=== PATIENT | female | born 1970 | race Caucasian/White ===

== ENCOUNTER 2017-05-12 15:16 | Outpatient (CLI) | payer BC | END 2017-05-12 15:17 | disposition home or self-care (01) | LOC: CTENTCT 15:16 | PROVIDERS: ATTEND Specialist | DX: J32.8 Other chronic sinusitis (principal) | CPT/HCPCS: 70486 ==

== ENCOUNTER 2019-08-13 10:13 | Emergency (ER) | payer BC, SELFPAY ==
--- NOTE | 2019-08-13 11:12 | RAD ---
Right thumb 3 views HISTORY: Right thumb pain. FINDINGS: Immediately volar to the base of the distal phalanx is a triangular 0.2 cm ossific fragment with sharp posterior margins. Donor site not well demonstrated. Joint spaces are preserved. Mild osteoarthritic changes at the first carpometacarpal joint. IMPRESSION: Minimal displacement of a probable tiny ossific avulsion of the flexor tendon at the vola r base plate of the distal phalanx. Correlate with recent trauma and clinical findings.
== END 2019-08-13 11:14 | disposition home or self-care (01) ==
LOC: ERS 10:13
DX: M65.4 Radial styloid tenosynovitis [de Quervain] (principal); F41.9 Anxiety disorder, unspecified

== ENCOUNTER 2020-03-04 21:37 | Emergency (ER) | payer OTHER, SELFPAY ==
--- NOTE | 2020-03-04 22:08 | RAD ---
Exam: Chest one view HISTORY:Chest pain Comparison: 11/25/2019 FINDINGS: Cardiac silhouette: Normal Aorta: Unremarkable Pulmonary vessels: Normal Costophrenic angles: Clear LUNGS: No masses or consolidation. Pneumothorax: None Osseous abnormalities: None IMPRESSION: No acute cardiopulmonary process.
[2020-03-04 22:25] LABS: #Basophils 0.1 thou/uL (0.0-0.2); #Lymphocytes 2.5 thou/uL (1.20-3.40); #Monocytes 0.5 thou/uL (0.11-0.59); %Basophils 1.1 % (0.0-1.0); %Eosinophils 0.5 % (0.0-10.0); %Monocytes 5.8 % (0.0-10.0); %Neutrophils 61.6 % (42.0-75.0); Hemoglobin 14.4 g/dL (12.0-16.0); Mean Corpuscular HGB CONC 33.9 g/dL (32.0-36.0); Mean Corpuscular Hemoglobin 30.1 pg (27.0-31.0); Mean Corpuscular Volume 88.8 fL (78.0-98.0); Mean Platelet Volume 9.3 fL (7.4-10.4); Platelet Count 238 thou/uL (130-400); RBC Distribution Width 11.4 % (11.5-14.5); Red Blood Cell (RBC) Count 4.79 mill/uL (4.20-5.40); White Blood Cell (WBC) Count 8.1 thou/uL (4.8-10.8)
[2020-03-04 22:50] LABS: ALT (SGPT) 32 U/L (8-55); AST (SGOT) 19 U/L (5-34); Albumin 4.3 g/dL (3.5-5.0); Alkaline Phosphatase 155 U/L (40-110); Anion Gap 15 mmol/L (10-20); BUN (Urea Nitrogen) 24 mg/dL (7.0-18.7); Bilirubin, Total 0.2 mg/dL (0.2-1.2); CK (CPK) 70 U/L (29-168); Calc. Creatinine Clearance 0 mL/min (70-130); Calcium 9.5 mg/dL (7.8-10.44); Carbon Dioxide 22 mmol/L (22-29); Chloride 105 mmol/L (98-107); Estimated GFR-MDRD 70; Globulin 2.9 g/dL (2.4-3.5); Glucose 113 mg/dL (70-105); Lipase 39 U/L (8-78); Potassium 3.6 mmol/L (3.5-5.1); Protein, Total 7.2 g/dL (6.0-8.3); Sodium 138 mmol/L (136-145)
[2020-03-04] MEDS ORDERED: Aspirin 325 MG TAB ONE (23:01)
[2020-03-04] MEDS ORDERED: Nitroglycerin 0.4 MG TAB 1 EACH ONE (23:01)
[2020-03-05 02:21] LABS: Troponin I Less than 0.010 ng/mL (< 0.028)
== END 2020-03-05 02:43 | disposition home or self-care (01) ==
LOC: ERS 21:37
DX: R07.9 Chest pain, unspecified (principal); F41.9 Anxiety disorder, unspecified; Z79.899 Other long term (current) drug therapy
CPT/HCPCS: 71045; 80053; 82550; 83690; 84443; 84484; 85025; 93005